=== PATIENT | male | born 1990 | race Caucasian/White ===

== ENCOUNTER 2023-06-17 20:53 | Emergency (ER) | payer SELFPAY ==
[2023-06-17 20:55] VITALS: BP 130/83; PULSE 84; RESP 20; TEMP 36.9; O2SAT 99; BMI 23.7
--- NOTE | 2023-06-18 04:39 | ED.UPPEXIN ---
HPI - Extremity Injury (Upper) General Chief Complaint: Extremity Injury, Upper Stated Complaint: broken finger Source: patient Mode of arrival: Ambulatory History of Present Illness HPI narrative: 32-year-old man says that he was diving into a pool and struck his left middle finger on something presumably the bottom. The finger has a subsequent deformity. This occurred just prior to his arrival. He is not on any blood thinners. No other injuries. Related Data Allergies Allergy/AdvReac Type Severity Reaction Status Date / Time No Known Drug Allergies Allergy Verified 06/17/23 20:55 Patient History Social History Smoking Status: Never smoker Smoking Status: Never smoker alcohol intake frequency: holidays/special occasions only Substance Use Type: does not use Exam Initial Vital Signs Initial Vital Signs: Vital Signs Temperature 98.4 F 06/17/23 20:55 Pulse Rate 84 06/17/23 20:55 Respiratory Rate 20 06/17/23 20:55 Blood Pressure 130/83 06/17/23 20:55 Pulse Oximetry 99 06/17/23 20:55 Oxygen Delivery Method Room Air 06/17/23 20:55 Const General: healthy appearing and No acute distress Extrem Other: Left long finger has a deformity consistent with a dislocation at the proximal IP joint, this appears to be a dorsal dislocation. Capillary refill and sensation are intact Procedures Orthopedic Joint Reduction Joint #1: Side: left Joint Reduction Location: finger Technique used: direct manipulation Additional Comments: Longb finger proximal IP joint I was called to triage to see this patient. He agreed to an attempted reduction without anesthesia. Using direct manipulation what was clinically dislocated finger was easily reduced. We ordered x-rays. Course Course Course Narrative: 32-year-old man with a dislocated left long finger PIP joint. This was reduced at triage, x-rays were ordered, it with a very busy night, the patient eloped prior to having x-rays done he did not receive any discharge instructions secondary to eloping Vital Signs Vital signs: Vital Signs - 8 hr 06/17/23 20:55 Temperature 98.4 F Pulse Rate 84 Respiratory Rate 20 Blood Pressure 130/83 Pulse Oximetry 99 Oxygen Delivery Method Room Air MDM - Extremity Injury (Upper) MDM Narrative Medical decision making narrative: 32-year-old male with an isolated injury to his left long finger, this was a dislocated proximal IP joint. This was reduced at triage, x-rays were ordered to confirm reduction and exclude fracture, the patient eloped without having these done. Discharge Plan Departure Patient Disposition: Elopement Clinical Impression: Dislocation of finger Qualifiers: Encounter type: initial encounter Qualified Code(s): S63.259A - Unspecified dislocation of unspecified finger, initial encounter
== END 2023-06-17 21:16 | disposition left against medical advice (07) ==
PROVIDERS: Emergency Provider Emergency Medicine
DX: S63.253A Unspecified dislocation of left middle finger, initial encounter (principal); X58.XXXA Exposure to other specified factors, initial encounter
CPT/HCPCS: 99281